=== PATIENT | male | born 1985 | race African-American/Black ===

== ENCOUNTER 2020-11-20 17:26 | Emergency (ER) | payer OTHER ==
[~2020-11-20] VITALS: Ht 180.3 cm; Wt 78.0 kg
[2020-11-20] MEDS ORDERED: TRAMADOL 50MG TABLET PO ONE (18:30)
[2020-11-20 18:39] VITALS: BP 138/76
== END 2020-11-20 20:38 | disposition home or self-care (01) ==
LOC: ER 17:26
DX: S62.395A Other fracture of fourth metacarpal bone, left hand, initial encounter for closed fracture (principal); Z87.81 Personal history of (healed) traumatic fracture; Z98.890 Other specified postprocedural states; V43.52XA Car driver injured in collision with other type car in traffic accident, initial encounter; Y93.89 Activity, other specified; Y92.488 Other paved roadways as the place of occurrence of the external cause
CPT/HCPCS: 29125; 73130; 99283